=== PATIENT | male | born 1970 | race Caucasian/White ===

== ENCOUNTER 2017-01-08 05:21 | Day surgery (SDC) | payer OTHER ==
[~2017-01-08] VITALS: Ht 167.6 cm; Wt 111.6 kg
--- NOTE | ~2017-01-08 | EKG ---
[address] [address] ELECTROCARDIOGRAM REPORT Name: PATIENCE CARDOZA Room #: DEP [facility].#: [id number] Admission: 01/08/17 Attend Phys: Daniel Simon MD Discharge: 01/08/17 Date of : 68 Report #: [id number] THIS REPORT FOR: //name// [facility] Test Date: 2017-01-08 Test Time: 10:58:11 Pat Name: PATIENCE CARDOZA Department: Room: 150 8 Gender: M Algologist: NICHO : 1970 Requested By: Daniel Simon Order Number: [id number] MD: Walker Diaz Measurements Intervals [place] Rate: 62 P: 53 [place]: 131 QRS: 2 QRSD: 102 T: -21 QT: 430 QTc: 437 Interpretive Statements Sinus rhythm Borderline T abnormalities, inferior leads Baseline wander in lead(s) V3 No previous ECG available for comparison Electronically Signed On 01-09-2017 12:38:44 RATE ENGINEER by Walker Diaz [email or web address] <ELECTRONICALLY SIGNED> By: Walker Diaz MD 01/09/17 1238 57 57 Walker Diaz MD /MANUEL
--- NOTE | ~2017-01-08 | O ---
[facility] [place] [address] OPERATIVE REPORT Name: PATIENCE CARDOZA Room #: DEP [facility]..#: [id number] Admission: 01/08/17 Attend Phys: Daniel Simon MD Discharge: 01/08/17 Date of : 68 Report #: [id number] THIS REPORT FOR: //name// CC: Kasi Simon DATE OF SERVICE: 01/08/2017 PREOPERATIVE DIAGNOSES: Nasal airway obstruction, turbinate hypertrophy, deviated nasal septum. POSTOPERATIVE DIAGNOSES: Nasal airway obstruction, turbinate hypertrophy, deviated nasal septum. PROCEDURE: Nasal septal reconstruction for turbinate outfracturing and submucous resection. SURGEON: Daniel Simon M.D. ANESTHESIA: General oral LMA. FINDINGS: There is a severe deviation of the septum. The quadrangular cartilage was severely deviated off the maxillary crest to the left side inferiorly. The caudal edge was deviated severely to the left as well with significant columellar show. There was a near vertical fracture in the middle of the quadrangular cartilage with the fracture edge being driven posteriorly into the right. This fracture at the superior aspect of the quadrangular cartilage as well as superior aspect of the perpendicular plate were deviated severely to the right as well. There was a small vomer spur located on the left. TECHNIQUE: After obtaining consent, he was brought to the operating suite, appropriate timeout was performed. General oral LMA anesthesia was obtained. Bed was turned 90 degrees. The nose was prepped and draped in usual sterile fashion, 8 mL of 1% Xylocaine 1:100,000 epinephrine injected on each side of the septum. After waiting an appropriate time a left side hemitransfixion incision was performed due to the severe deviation of the caudal edge. I elevated mucosal flap from the caudal edge on both the right and the left side, although on the right side is only able to elevate a partially back due to the severe deviation. Elevation on the left side proceeded back through the quadrangular cartilage into the anterior portion of the perpendicular plate in the vomer and was carried down to the nasal septal spine. Using a fracture fragment is the fracture line as an obvious area for disarticulation, I made a cut very anterior to this in a vertical fashion and took a large piece of the bowed quadrangular cartilage, leaving enough anteriorly and superiorly for tip support. This allowed me to elevate a mucosal flap off the right side of the quadrangular [address] [address] OPERATIVE REPORT Name: PATIENCE CARDOZA [id number] Admission: 01/08/17 Attend Phys: Daniel Simon MD Discharge: 01/08/17 Date of : 68 Report #: [id number] cartilage back to the fracture fragment. I was unable to elevate or make continued elevation of the mucosal flap on the right side fully exposing the remainder of the deviated vomer and perpendicular plate on the remnant of the posterior quadrangular cartilage. This was taken down with serial use of Kulwinder-Salas scissors for incisions followed by Kristyn forceps. I then back elevated superiorly and took as much of the deviated quadrangular cartilage superiorly as possible, leaving enough for tip support the vomer spurring on the left side. The only mucosal rent noted was on the vomer spur on the left side. On completion majority of the deviation was resolved except for a very supremely high on the right side, where I did not think that I could take anymore without losing significant tip support. The caudal edge was intact; however, still had a large deviation off to the left side, I created a swinging door flap in this area by taking a small amount inferiorly. This allowed me to swing the caudal edge back towards midline. Previously harvested cartilage was trimmed and morcellized and weakened to where it had no memory and placed back between the septal folds flaps. I then created a small pocket between the lower lateral cartilage in the midline and since the caudal edge of the septum was free slinging I moved this over to the midline and was able put it in the small pocket I then used 4-0 chromic suture to anchor the cartilage strut back to the columella as well as to the maxillary crest. This improved the airway on the left anteriorly and kept from having quite as much columellar show. Previously designed septal splints were placed, 90 each side of the septum and secured with two 3-0 Prolene sutures. After I quilted the remainder of the quadrangular cartilage and the mucosal flaps together. This resulted in improved airway on both sides, particularly on the right with the exception being very supreme right airway. Each inferior turbinate was then addressed with submucous resection in inferior and anterior aspect, each inferior turbinate was then outfractured as well. I was able to easily admit a Conroy elevator along its full length of the nasal airway on both sides completion of the case. A single piece of Merogel was trifolded and placed between the septal flap and the turbinate on both the right and left side. At this point, the case was terminated having met the goals of surgery, taken to recovery in stable condition. ESTIMATED BLOOD LOSS: Approximately 20-25 mL. By: 1837 20 Daniel Simon MD /porfirio
--- NOTE | ~2017-01-08 | H ---
[facility] [place] [address] HISTORY AND PHYSICAL Name: PATIENCE CARDOZA Room #: 150-8 [facility] M.R.#: [id number] Admission: 01/08/17 Attend Phys: Daniel Simon MD Discharge: Date of : 68 Report #: [id number] THIS REPORT FOR: //name// CC: Kasi Simon DATE OF SERVICE: 01/08/2017 CHIEF COMPLAINT: Nasal airway obstruction. HISTORY OF PRESENT ILLNESS: The patient is a 46-year-old gentleman evaluated in 12/2016 for a longstanding history of left nasal airway obstruction following a nasal fracture decades ago. He also has some mild sleep apnea and allergies, which he treats with Flonase. He is finally to the point where he wants to improve his nasal airway obstruction, but has no concerns about his physical appearance of the nares. His seasonal allergy symptoms are well controlled presently was Zyrtec and nasal steroid spray. He has been successful in using a CPAP mask for several years. Physical examination does demonstrate an exaggerated hump with the tip deviation to the left. He has rather substantial septal deviation to the right superiorly and then impinging on the left middle meatus about 75%. He had left more than right inferior turbinate hypertrophy at the time of evaluation several weeks ago. Based on these findings, I gave him the options of nasal septal reconstruction and turbinate trim to improve his nasal airway obstruction. He understands this may or may not change his sleep apnea and CPAP setting. I also discussed with him the risks involved with the procedure, postoperative care and answered his questions. He is eager to proceed forward with surgery, but understands it will not impact the external appearance greatly, nor will it affect his allergy control substantially. ALLERGIES TO MEDICATIONS: None. MEDICATIONS ON ADMISSION: Dextroamphetamine 10 mg once a day, atorvastatin 80 mg once a day, Flonase nasal spray daily, gemfibrozil 600 mg once a day, glyburide 2 mg once a day, Invokana 100 mg once a day, lisinopril 5 mg a day, meloxicam 15 mg daily as needed, metformin 500 mg once a day, pioglitazone tablets once a day, Vyvanse 20 mg once a day. PAST MEDICAL AND SURGICAL HISTORY: Notable for previous knee surgery, a longstanding history of diabetes mellitus and allergic rhinitis. FAMILY HISTORY: Notable for only diabetes. REVIEW OF SYSTEMS: Negative for any GI, , cardiovascular, pulmonary or hematopoietic issues. [address] [address] HISTORY AND PHYSICAL Name: PATIENCE CARDOZA Room #: 150-8 [facility]..#: [id number] Admission: 01/08/17 Attend Phys: Daniel Simon MD Discharge: Date of : 68 Report #: [id number] PHYSICAL EXAMINATION: VITAL SIGNS: Height is 5 feet 6 inches, weight 240 pounds. HEENT: As outlined above for the nasal anatomy. Oral cavity and oropharynx are unremarkable. NECK: Without any abnormal palpations. CHEST: Clear to patient. CARDIOVASCULAR: Regular rhythm and regular rate. ASSESSMENT: History of nasal airway obstruction with history of allergic rhinitis and mild sleep apnea. PLAN: Will be for the above-mentioned surgery. <ELECTRONICALLY SIGNED> By: Daniel Simon MD 01/08/17 0732 1301 [id number] Daniel Simon MD /nt
[~2017-01-08 05:21] MED LIST: ACTOS 30 MG TAB30 M2 PO; AMARYL2 MG PO; FISH OIL 1,001000 M2 PO; FLONASE 0.05%50 MCG NASAL; GEMFIBROZIL 60600 M1 PO; GINKGO BILOBA500 MG PO; GLUCOPHAGE XR500 MG PO; INVOKANA100 MG PO; LIPITOR80 MG PO; LISINOPRIL5 MG PO; LITHIUM CARBON150 MG PO; MIRALAX17 GM PO; MOBIC15 MG PO; PROBIOTIC1 EAC1 PO; ST. JOHN'S WOR300 MG PO; VITAMIN B-6100 MG PO; VITAMIN D-32000 UNIT PO; VYVANSE30 MG PO; ZYRTEC10 M5 PO
[2017-01-08 11:23] VITALS: BP 125/63
[2017-01-08 13:39] VITALS: BP 125/63
== END 2017-01-08 14:00 | disposition home or self-care (01) ==
LOC: OR 05:21 → TBA 05:21 → OR 08:26
DX: J34.2 Deviated nasal septum (principal); J34.3 Hypertrophy of nasal turbinates; J34.89 Other specified disorders of nose and nasal sinuses; I10 Essential (primary) hypertension; E11.9 Type 2 diabetes mellitus without complications; E78.5 Hyperlipidemia, unspecified; G47.33 Obstructive sleep apnea (adult) (pediatric); Z87.442 Personal history of urinary calculi; Z79.899 Other long term (current) drug therapy; Z87.891 Personal history of nicotine dependence; Z98.890 Other specified postprocedural states
CPT/HCPCS: 50010; 50101; 50386; 50398; 50951; 51316; 51634; 53635; 56526; 56528; 62110; 62900; 70005